=== PATIENT | male | born 1985 | race Two or more races ===

== ENCOUNTER 2024-10-06 10:13 | Emergency (ER) | payer BC, OTHER ==
[~2024-10-06] VITALS: Ht 190.5 cm; Wt 104.5 kg
--- NOTE | 2024-10-06 10:38 | ECG ---
[facility] Test Date: 2024-10-06 Test Time: 10:37:14 Pat Name: MERLYN QUEVEDO Department: er Room: Gender: M Levi Maker: gp : [id number] Requested By: JAKE PEARCE Order Number: [id number] Reading MD: David Koch Measurements Intervals [place] Rate: 87 P: 66 [place]: 144 QRS: 72 QRSD: 89 T: -32 QT: 363 QTc: 437 Interpretive Statements Sinus rhythm Nonspecific T abnormalities, inferior leads Baseline wander in lead(s) III,V1,V6 Electronically Signed On 10-08-2024 16:58:36 PDT by David Koch Please click the below link to view image of tracing.
--- NOTE | 2024-10-06 11:21 | ED.PDOC ---
History of Present Illness HPI Comments Patient is a 39 year-old male with no significant past medical history presented to the ED with a chief complaint of dizziness for 1 day. Patient reports he was apparently well until yesterday morning when he started to feel dizzy with a sensation of imbalance when he got up from a sitting or lying down position, denied any sensation of spinning of surroundings or self, denied blurred vision, headache. Patient also reported of numbness on the right side of his lips but denied any other sensory abnormalities. Patient does not report of any similar episode of dizziness before and reports that since yesterday he has been improving and today only feels mildly dizzy. Patient denied chest pain, palpitations, shortness of breath. Chief Complaint: Dizziness Time Seen by MD: 11:02 Primary Care Provider: NONE Reviewed Notes: Nurses Notes, Medications, Allergies Allergies: Coded Allergies: NO KNOWN ALLERGIES (Unverified , 10/06/24) Information Source: Patient Mode of Arrival: Ambulatory Past Medical History PAST MEDICAL HISTORY: Denies Surgical History: Denies all surgeries Family History Family History: Reviewed,noncontributory to illness Social History Smoker: Non-Smoker Alcohol: Denies ETOH Use Drugs: Denies Drug Use Lives In: Home Constitutional: denies: chills, diaphoresis, fatigue, fever, malaise, sweats, weakness, others EENTM: denies: blurred vision, double vision, ear bleeding, ear discharge, ear drainage, ear pain, ear ringing, eye pain, eye redness, hearing loss, mouth pain, mouth swelling, nasal discharge, nose bleeding, nose congestion, nose pain, photophobia, tearing, throat pain, throat swelling, voice changes, others Respiratory: denies: cough, hemoptysis, orthopnea, SOB at rest, shortness of breath, SOB with excertion, stridor, wheezing, others Cardiovascular: denies: chest pain, dizzy spells, diaphoresis, Dyspnea on exertion, edema, irregular heart beat, left arm pain, lightheadedness, palpitations, PND, syncope, others Gastrointestinal: denies: abdomen distended, abdominal pain, blood streaked bowels, constipated, diarrhea, dysphagia, difficulty swallowing, hematemesis, melena, nausea, poor appetite, poor fluid intake, rectal bleeding, rectal pain, vomiting, others Genitourinary: denies: burning, dysuria, flank pain, frequency, hematuria, incontinence, penile discharge, penile sore, pain, testicle pain, testicle swelling, urgency, others Neurological: denies: dizziness, fainting, headache, left sided numbness, left sided weakness, numbness, paresthesia, pre-existing deficit, right sided numbness, right sided weakness, seizure, speech problems, tingling, tremors, weakness, others Musculoskeletal: denies: back pain, gout, joint pain, joint swelling, muscle pain, muscle stiffness, neck pain, others Integumetry: denies: bruises, change in color, change in hair/nails, dryness, laceration, lesions, lumps, rash, wounds, others Allergic/Immunocompromised: denies: Difficulty Healing, Frequent Infections, Hives, Itching, others Hematologic/Lymphatic: denies: anemia, blood clots, easy bleeding, easy bruising, swollen glands, others Endocrine: denies: excessive hunger, excessive sweating, excessive thirst, excessive urination, flushing, intolerance to cold, intolerance to heat, unexplained weight gain, unexplained weight loss, others Psychiatric: denies: anxiety, bipolar disorder, depression, hopeless, panic disorder, schizophrenia, sleepless, suicidal, others Physical Exam General Appearance: No Apparent Distress, Normal HEENT: PERRL/EOMI, Pharynx Normal Neck: Full Range of Motion, Normal Inspection Respiratory: Chest Non-Tender, Lungs Clear, No Accessory Muscle Use, No Respiratory Distress, Normal Breath Sounds Cardiovascular: No Edema, No JVD, No Murmur, Normal Peripheral Pulses, Regular Rate/Rhythm Breast Exam: Deferred Gastrointestinal: No Organomegaly, Non Tender, Normal Bowel Sounds, Soft Genitalia: Deferred Pelvic: Deferred Rectal: Deferred Extremities: No calf tenderness, Normal inspection, Normal range of motion, Non-tender, No pedal edema Neurologic: Alert, upsetting machine operator II-XII nml as Tested, No Motor Deficits, Normal Affect, Normal Mood, No Sensory Deficits Cerebellar Function: Normal Reflexes: Normal Skin: Dry, Normal Color, Warm Peripheral Pulses: 2+ dorsalis pedis (R), 2+ dorsalis pedis (L), 2+ Radial (R), 2+ Radial (L) Lymphatic: NOT DONE Was a procedure done? Was a procedure done?: No EKG EKG : Pulse Rate (adult): 87 [place]: Normal Cardiac Rhythm: NSR Block: None Hypertrophy: None ST: Nonsp (T-wave inversion in lead 3 and AVF) Differential Dx Considerations may include: Vertigo, orthostatic hypotension, electrolyte abnormalities, X-Ray, Labs, Meds, VS Vital Signs Date Time Temp Pulse Resp B/P (MAP) Pulse Ox O2 Delivery O2 Flow Rate FiO2 10/06/24 12:30 66 18 127/72 (90) 100 10/06/24 12:30 70 18 96 Room Air 10/06/24 11:20 87 10/06/24 10:37 87 10/06/24 10:13 97.6 87 16 134/85 (101) 98 97.6 Lab Test 10/06/24 12:45 10/06/24 11:14 10/06/24 10:33 Range/Units Urine Color Yellow Yellow Urine Clarity Clear Clear Urine pH 5.5 5.0-9.0 Urine Specific [place] 1.023 1.001-1.035 Urine Protein Negative Negative Urine Ketones Negative Negative Urine Blood Negative Negative /uL Urine Nitrite Negative Negative Urine Bilirubin Negative Negative Urine Urobilinogen Normal Negative mg/dL Urine Leukocyte Esterase Negative Negative /uL Urine RBC 1 0 - 3 /hpf Urine Microscopic WBC 1 0-3 /HPF Urine Squamous Epithelial Cells None seen <5 /hpf Urine Bacteria None seen None Seen /hpf Urine Mucus Few None Seen Urine Glucose Normal Normal mg/dL Urine Opiates Screen Neg NEGATIVE Urine Fentanyl Screen Neg NEGATIVE Urine Barbiturates Screen Neg NEGATIVE Urine Phencyclidine Screen Neg NEGATIVE Urine Amphetamines Screen Neg NEGATIVE Urine Benzodiazepines Screen Neg NEGATIVE Urine Cocaine Screen Neg NEGATIVE Urine Cannabinoids Screen Neg NEGATIVE White Blood Count 6.7 4.4-10.8 10^3/uL Red Blood Count 5.58 4.5-5.90 10^6/uL Hemoglobin 17.2 13.5-17.5 g/dL Hematocrit 50.1 41.0-53.0 % Mean Corpuscular Volume 89.8 80.0-100.0 fL Mean Corpuscular Hemoglobin 30.8 28.0-32.0 pg Mean Corpuscular Hemoglobin Concent 34.3 32.0-36.0 g/dL Red Cell Distribution Width 13.1 11.8-14.3 % Platelet Count 315 140-450 10^3/uL Mean Platelet Volume 8.2 6.9-10.8 fL Neutrophils (%) (Auto) 64.0 37.0-80.0 % Lymphocytes (%) (Auto) 27.7 10.0-50.0 % Monocytes (%) (Auto) 6.0 0.0-12.0 % Eosinophils (%) (Auto) 1.6 0.0-7.0 % Basophils (%) (Auto) 0.7 0.0-2.0 % Neutrophils # (Auto) 4.3 1.6-8.6 10 ^3/uL Lymphocytes # (Auto) 1.9 0.4-5.4 10 ^3/uL Monocytes # (Auto) 0.4 0-1.3 10 ^3/uL Eosinophils # (Auto) 0.1 0-0.8 10 ^3/uL Basophils # (Auto) 0 0-0.2 10 ^3/uL Nucleated Red Blood Cells 0.2 % Sodium Level 142 136-145 mmol/L Potassium Level 4.1 3.5-5.1 mmol/L Chloride Level 106 98-107 mmol/L Carbon Dioxide Level 28 20-31 mmol/L Anion Gap 8 5-15 Blood Urea Nitrogen 11 9-23 mg/dL Creatinine 0.85 0.700-1.30 mg/dL Glomerular Filtration Rate Calc 113 >90 mL/min BUN/Creatinine Ratio 12.9 10.0-20.0 Serum Glucose 97 74-106 mg/dL Calcium Level 10.3 8.7-10.4 mg/dL POC Glucose 94 70-106 mg/dl Patient is a 39 year old male came to the ED with a chief complaint of dizziness . On physical exam no motor or focal weakness, no sensory abnormality, no speech abnormality, no cerebellar signs, no blurred vision were found. Orthostatic vitals were checked and patient did not have any orthostatic hypotension. As the patient did not have any neurological signs on examination and reported that the dizziness had improved since yesterday, head CT was not done. Basic labs including CBC and BMP were grossly normal and urinalysis was normal. Patient reported improved symptoms and was advised to hydrate adequately. 25 mg of meclizine was given and patient was made an appointment at the discharge clinic and advised to follow up, advised to visit the ER again if the symptoms get worse. Time of 1ST Reevaluation: 11:49 Reevaluation 1ST: Improved Patient Education/Counseling: Diagnosis, Treatment Family Education/Counseling: No Family Present SEPSIS Sepsis Screen Date sepsis recognized/suspect: Oct 06, 2024 Time Sepsis recognized/suspect: 1013 Recent Procedure: No On Antibiotic Therapy: No Respiratory Rate >20: No Heart Rate >90: No Temp<36 C (96.8 F) or >38.3 C: No SBP <90 or MAP <65 mmHG: No New Acute Mental Status Change: No Is the patient on CPAP, BIPAP,: No Vital Signs Date Time Temp Pulse Resp B/P (MAP) Pulse Ox O2 Delivery O2 Flow Rate FiO2 10/06/24 12:30 66 18 127/72 (90) 100 10/06/24 12:30 70 18 96 Room Air 10/06/24 11:20 87 10/06/24 10:37 87 10/06/24 10:13 97.6 87 16 134/85 (101) 98 97.6 Laboratory Tests Test 10/06/24 11:14 White Blood Count 6.7 10^3/uL (4.4-10.8) Departure 1 Departure Time of Disposition: 14:20 Impression: Primary Impression: Vertigo Additional Impression: Dizziness Disposition: 01 HOME / SELF CARE / HOMELESS Condition: Stable Critical Care Note Critical Care Time?: No Stability Stability form required: No Heart Score Heart Score: Heart Score Response (Comments) Value History N/A 0 EKG N/A 0 Age N/A 0 Risk Factors N/A 0 Troponin N/A 0 Total 0 KYLE SMYTH RESIDENT Oct 06, 2024 11:20
[2024-10-06 11:28] LABS: Hematocrit 50.1 % (41.0-53.0); Hemoglobin 17.2 g/dL (13.5-17.5); Mean Corpuscular Hemoglobin 30.8 pg (28.0-32.0); Mean Corpuscular Volume 89.8 fL (80.0-100.0); Nucleated Red Blood Cells % 0.2 %
[2024-10-06 11:35] LABS: Chloride 106 mmol/L (98-107); Potassium 4.1 mmol/L (3.5-5.1); Sodium 142 mmol/L (136-145)
[2024-10-06 11:36] LABS: Anion Gap 8 (5-15); Carbon Dioxide 28 mmol/L (20-31)
[2024-10-06 11:37] LABS: Calcium 10.3 mg/dL (8.7-10.4)
[2024-10-06 11:41] LABS: BUN/Creatinine Ratio 12.9 (10.0-20.0); Blood Urea Nitrogen 11 mg/dL (9-23); Glucose 97 mg/dL (74-106)
[2024-10-06 13:34] LABS: Urine Protein, UAD Negative (Negative)
[2024-10-06 13:39] LABS: Amphetamine Screen, Urine Neg (NEGATIVE); Barbiturate Scree,Urine Neg (NEGATIVE); Benzodiazephine Screen, Urine Neg (NEGATIVE); Cocaine Screen, Urine Neg (NEGATIVE); Opiate Scree,Urine Neg (NEGATIVE)
[2024-10-06 13:40] LABS: Cannabinoid Screen, Urine Neg (NEGATIVE); Phencyclidine Screen, Urine Neg (NEGATIVE)
[2024-10-06] MEDS: MECLIZINE HCL 25 MG TAB PO ONE (15:40)
[2024-10-06 15:42] VITALS: BP 117/79; PULSE 68; RESP 20; TEMP 97.9; O2SAT 98
== END 2024-10-06 15:45 | disposition home or self-care (01) ==
LOC: ER 10:19
DX: R42 Dizziness and giddiness (principal); Z79.899 Other long term (current) drug therapy
CPT/HCPCS: 36415; 80048; 80307; 81001; 82947; 85025; 93005; 99285; J8597; 82962

== ENCOUNTER 2024-10-18 17:06 | Emergency (ER) | payer BC ==
[~2024-10-18] VITALS: Ht 190.5 cm; Wt 108.0 kg
--- NOTE | 2024-10-18 17:43 | ED.PDOC ---
HPI (NEURO) HPI Comments A 39 year-old male to the ED with a chief complaint of dizziness as of X2 weeks ago. Patient reports additional symptoms of nausea as was X1 week ago. Patient denies this happening before and further denies any trauma to the head. Patient has no further complaints. Patient denies further associated symptoms of fever, chills, loss of consciousness, migraine, or blurred vision. Upon evaluation, patients' vital signs are stable. Patient states he has been seen at two other facilities for same complaints where he received complete workups. Patient states the only study of the head were performed was a head CT and he is currently concerned that there may be something going on intracranially. Chief Complaint: Dizziness Time Seen by MD: 17:34 Primary Care Provider: NONE Reviewed Notes: Nurses Notes, Medications, Allergies Information Source: Patient Mode of Arrival: Ambulatory Severity: Moderate Timing: Weeks Duration: Since onset Circumstances: Spontaneous Symptoms: Vertigo Associated Signs and Symptoms: Nausea, Other (dizziness ) Past Medical History PAST MEDICAL HISTORY: Denies Past Medical History (Other): Recent history of dizziness Surgical History: Denies all surgeries Family History Family History: Reviewed,noncontributory to illness Social History Smoker: Non-Smoker Alcohol: Denies ETOH Use Drugs: Denies Drug Use Lives In: Home Constitutional: denies: chills, diaphoresis, fatigue, fever, malaise, sweats, weakness, others EENTM: denies: blurred vision, double vision, ear bleeding, ear discharge, ear drainage, ear pain, ear ringing, eye pain, eye redness, hearing loss, mouth pain, mouth swelling, nasal discharge, nose bleeding, nose congestion, nose pain, photophobia, tearing, throat pain, throat swelling, voice changes, others Respiratory: denies: cough, hemoptysis, orthopnea, SOB at rest, shortness of breath, SOB with excertion, stridor, wheezing, others Cardiovascular: denies: chest pain, dizzy spells, diaphoresis, Dyspnea on exertion, edema, irregular heart beat, left arm pain, lightheadedness, palpitations, PND, syncope, others Gastrointestinal: reports: nausea; denies: abdomen distended, abdominal pain, blood streaked bowels, constipated, diarrhea, dysphagia, difficulty swallowing, hematemesis, melena, poor appetite, poor fluid intake, rectal bleeding, rectal pain, vomiting, others Genitourinary: denies: burning, dysuria, flank pain, frequency, hematuria, incontinence, penile discharge, penile sore, pain, testicle pain, testicle swelling, urgency, others Neurological: reports: dizziness; denies: fainting, headache, left sided numbness, left sided weakness, numbness, paresthesia, pre-existing deficit, right sided numbness, right sided weakness, seizure, speech problems, tingling, tremors, weakness, others Musculoskeletal: denies: back pain, gout, joint pain, joint swelling, muscle pain, muscle stiffness, neck pain, others Integumetry: denies: bruises, change in color, change in hair/nails, dryness, laceration, lesions, lumps, rash, wounds, others Allergic/Immunocompromised: denies: Difficulty Healing, Frequent Infections, Hives, Itching, others Hematologic/Lymphatic: denies: anemia, blood clots, easy bleeding, easy bruising, swollen glands, others Endocrine: denies: excessive hunger, excessive sweating, excessive thirst, excessive urination, flushing, intolerance to cold, intolerance to heat, unexplained weight gain, unexplained weight loss, others Psychiatric: denies: anxiety, bipolar disorder, depression, hopeless, panic disorder, schizophrenia, sleepless, suicidal, others All Other Systems: Reviewed and Negative Physical Exam General Appearance: Moderate Distress (Mild distress due to dizziness concerns.), Normal HEENT: Head (Unremarkable cranial evaluation. No skull depressions or deformities. No signs of trauma.), Normal ENT Inspection, Pharynx Normal, TMs Normal Neck: Full Range of Motion, Non-Tender, Normal, Normal Inspection Respiratory: Chest Non-Tender, Lungs Clear, No Accessory Muscle Use, No Respiratory Distress, Normal Breath Sounds Cardiovascular: No Edema, No JVD, No Murmur, No Gallop, Normal Peripheral Pul ses, Regular Rate/Rhythm Breast Exam: Deferred Gastrointestinal: No Organomegaly, Non Tender, No Pulsatile Mass, Normal Bowel Sounds, Soft Genitalia: Deferred Pelvic: Deferred Rectal: Deferred Extremities: No calf tenderness, Normal capillary refill, Normal inspection, Normal range of motion, Non-tender, No pedal edema Neurologic: Alert, No Motor Deficits, Normal Affect, Normal Mood, No Sensory Deficits Cerebellar Function: NOT DONE Reflexes: NOT DONE Skin: Dry, Normal Color, Warm Lymphatic: No Adenopathy Was a procedure done? Was a procedure done?: No Differential Diagnosis (SZ) General Weakness: Dehydration, Other (Vertigo, BPPV, Meniere's, inner ear concern, intracranial neoplasm) X-Ray, Labs, Meds, VS Vital Signs Date Time Temp Pulse Resp B/P (MAP) Pulse Ox O2 Delivery O2 Flow Rate FiO2 10/18/24 20:15 97.3 65 16 129/82 (98) 96 97.3 10/18/24 18:13 84 16 96 Room Air* 0 21 10/18/24 17:07 97.5 72 16 132/75 97 97.5 Lab Test 10/18/24 17:12 Range/Units POC Glucose 94 70-106 mg/dl Current Medications Medications (Trade) Dose Ordered Sig/Lissett Route Start Time Stop Time Status Last Admin Meclizine HCl (Antivert Tablet) 25 mg ONCE ONCE PO 10/18/24 17:45 10/18/24 17:46 DC 10/18/24 18:19 Ondansetron HCl (Zofran Po) 4 mg ONCE ONCE PO 10/18/24 17:45 10/18/24 17:46 DC 10/18/24 18:20 X-Ray, Labs, Meds, VS Comment Patient had moderate relief of symptoms status post medication dispensed in the ED. All studies performed the ED were evaluated by me personally. Imaging studies of the head were unremarkable for any acute intracranial concerns. No signs of any mass or shift. Advised patient to follow up with the primary care provider for ENT referral and evaluation. Time of 1ST Reevaluation: 20:40 Reevaluation 1ST: Improved Consultation: PCP Patient Education/Counseling: Diagnosis, Treatment Family Education/Counseling: Diagnosis, Treatment, No Family Present Departure 1 Departure Time of Disposition: 20:40 Impression: Primary Impression: Dizziness Disposition: 01 HOME / SELF CARE / HOMELESS Condition: Stable Additional Instructions: Advised patient utilize medication as needed for symptomatic relief in additionally, patient should follow up with the primary care provider for continued evaluation and possible ENT referral. e-Prescriptions Ondansetron Odt 4MG Tab (ZOFRAN PO) 4 Mg Tb 4 MG PO Q6HP PRN, #20 TAB ODT TAB-DISSOLVE IN MOUTH, THEN SWALLOW Prov: MONSE JORDAN PAC 10/18/24 Meclizine HCl (Meclizine 25) 25 Mg Tab 25 MG PO Q8HP PRN, #30 TAB Prov: MONSE JORDAN PAC 10/18/24 Discharged With: Self, Friend Critical Care Note Critical Care Time?: No Stability Stability form required: No Heart Score Heart Score: Heart Score Response (Comments) Value History N/A 0 EKG N/A 0 Age N/A 0 Risk Factors N/A 0 Troponin N/A 0 Total 0 I personally scribed for MONSE JORDAN PAC ([email or web address]) on 10/18/24 at 17:43. Electronically submitted by Birgit Clemens ([email or web address]). MONSE JORDAN PAC Oct 18, 2024 17:43
[2024-10-18 18:13] VITALS: PULSE 84; RESP 16; O2SAT 96
--- NOTE | 2024-10-18 18:17 | DVH ---
EXAM: CT HEAD WITHOUT CONTRAST INDICATION: Headache/dizziness TECHNIQUE: CT of the head without intravenous contrast. Radiation Dose Information: CT Dose: CTDI volume is 63.16 mGy. Dose-length product is 1244.52 mGy*cm The dose indicators for CT are the volume Computed Tomography (CT) Dose Index (CTDIvol) and the Dose Length Product (DLP), and are measured in units of mGy and mGy-cm, respectively. These indicators are not patient dose, but values generated from the CT scanner acquisition factors. The report includes radiation exposure data for exposures received during this examination. COMPARISON: None FINDINGS: There is no evidence of acute intracranial hemorrhage, extra-axial collection, mass effect, midline s hift, herniation or hydrocephalus. The ventricles, sulci and cisterns are age appropriate. The head-white differentiation is intact. Patchy periventricular and subcortical white matter hypoattenuation is nonspecific but may be related to small vessel ischemic disease. The visualized paranasal sinuses and mastoid air cells are clear. The surrounding soft tissues and osseous structures are unremarkable. IMPRESSION: 1. No acute intracranial abnormality. HS:Y
[2024-10-18] MEDS: MECLIZINE HCL 25 MG TAB PO ONE (18:19)
[2024-10-18] MEDS: ONDANSETRON ODT 4 MG TAB PO ONE (18:20)
[2024-10-18] MEDS ORDERED: MECL1TAB42 PO (20:41)
[2024-10-18] MEDS ORDERED: ZOFR4T PO (20:41)
[2024-10-18 22:48] VITALS: BP 133/84; TEMP 98; O2SAT 98
[2024-10-18 22:49] VITALS: PULSE 62; RESP 20
== END 2024-10-18 22:51 | disposition home or self-care (01) ==
LOC: ER 17:06
DX: R42 Dizziness and giddiness (principal); R11.0 Nausea
CPT/HCPCS: 70450; 82947; 99284; J8597; Q0162; 82962